=== PATIENT | female | born 1970 | race Hispanic/Latino ===

== ENCOUNTER 2022-01-27 09:39 | Emergency (ER) | payer OTHER ==
[2022-01-27] MEDS ORDERED: Acetaminophen 500 MG TAB ONE (10:11)
[2022-01-27] MEDS ORDERED: Boostrix 0.5 ML (Tdap) VIAL (>/=7 yrs of age) ONE (10:11)
== END 2022-01-27 12:40 | disposition home or self-care (01) ==
LOC: CSHERS 09:39
DX: S93.402A Sprain of unspecified ligament of left ankle, initial encounter (principal); S00.03XA Contusion of scalp, initial encounter; S00.31XA Abrasion of nose, initial encounter; E11.9 Type 2 diabetes mellitus without complications; W10.8XXA Fall (on) (from) other stairs and steps, initial encounter
CPT/HCPCS: 29515; 70450; 90471; 90715

== ENCOUNTER 2022-05-06 17:47 | Emergency (ER) | payer OTHER | END 2022-05-06 20:10 | disposition home or self-care (01) | LOC: CSHERS 17:47 | DX: M25.571 Pain in right ankle and joints of right foot (principal); R07.81 Pleurodynia; I25.10 Atherosclerotic heart disease of native coronary artery without angina pectoris; E11.9 Type 2 diabetes mellitus without complications | CPT/HCPCS: 71045; 93005 ==